=== PATIENT | female | born 1985 | race African-American/Black ===

== ENCOUNTER 2016-04-04 16:42 | Emergency (ER) | payer OTHER ==
[2016-04-04 16:46] VITALS: BMI 25.2
[2016-04-04] MEDS ORDERED: ONDANSETRON 4 MG/2 ML VIAL ONE ×2 (17:04→17:11)
[2016-04-04] MEDS ORDERED: SODIUM CHLORIDE 1,000 ML IV ONE (17:07)
[2016-04-04] MEDS ORDERED: PANTOPRAZOLE SODIUM 40 MG in SODIUM CHLORIDE 100 ML IVPB ONE (17:07)
[2016-04-04] MEDS ORDERED: morphine CARPU-JECT 4 MG/1 ML DISP.SYRIN IVPUSH ONE (17:07)
[2016-04-04] MEDS ORDERED: ONDANSETRON 4 MG/2 ML VIAL IVPB ONE (17:07)
[2016-04-04] MEDS ORDERED: FAMOTIDINE 20 MG/50 ML IVPB 50 ML IVPB ONE ×2 (17:09→17:12)
[2016-04-04] MEDS ORDERED: morphine CARPU-JECT 4 MG/1 ML DISP.SYRIN ONE (17:12)
[2016-04-04 17:13] LABS: URINE APPEARANCE CLOUDY; URINE BILIRUBIN NEGATIVE (NEGATIVE); URINE BLOOD NEGATIVE (NEGATIVE); URINE COLOR DKYELLOW; URINE GLUCOSE (UA) NEGATIVE (NEGATIVE); URINE KETONE 1+ (NEGATIVE); URINE LEUK ESTERASE 3+ (NEGATIVE); URINE NITRITE NEGATIVE (NEGATIVE); URINE PROTEIN 1+ (NEGATIVE); URINE UROBILINOGEN NEGATIVE E.U./dl (0.2-1.0)
[2016-04-04 17:15] LABS: URINE HYALINE CAST 1 /lpf; URINE MUCUS RARE; URINE RBC <1 /hpf (0-3); URINE WBC 1 /hpf (3-5)
--- NOTE | 2016-04-04 17:23 | PDOC ---
History of Present Illness <Domingo Garcia - Last Filed: 04/04/16 22:29> - General History Source: Patient Exam Limitations: No Limitations - History of Present Illness Initial Comments: 04/04/16 17:43 The patient is a 30 year old female, with a significant past medical history of pancreatitis, s/p cholecystectomy, kidney stones s/p lithotripsy, ovarian cysts and fibroids, who presents to the emergency department with constant epigastric pain which radiates around to the left side of her back since yesterday. The patient states that her epigastric pain is exacerbated when she coughs. The patient additionally reports nausea and nonbloody diarrhea but denies any vomiting. The patient reports a recent URI with fevers and body aches over the past 4 days but states that those symptoms have since resolved. The patient reports taking Aspirin and Theraflu for her URI symptoms. Her epigastric pain has persisted after her URI symptoms resolved so the patient saw her PCP yesterday. She reports that her PCP did some bloodwork. The patient states that her symptoms feel similar to her last episode of pancreatitis which was approximately one year ago. Currently in the ED, the patient denies fever, chills, shortness of breath, chest pain, constipation or melena. The patient recently moved to [place] from [place]. Allergies: Penicillins, Hydrocodone bitartrate Past Surgical History: Cholecystectomy, Hiatal Hernia s/p Lap Chato Fundoplication, Lithotripsy, Colonoscopy Social History: Non smoker. Reports social alcohol use. Denies drug use. PCP: Dr. Arsh Sanchez <Maria Isabel Matthew - Last Filed: 04/04/16 22:42> - General Chief Complaint: Pain Stated Complaint: UPPER STOMACH PAIN Time Seen by Provider: 04/04/16 16:56 Past History - Past Medical History Other medical history: pancreatitis - Surgical History Abdominal Surgery: Yes (tumor removed, liptotripsy,colonoscopy) - Psycho/Social/Smoking Cessation Hx Suicidal Ideation: No Smoking History: Never smoked Information on smoking cessation initiated: No Hx Alcohol Use: No Drug/Substance Use Hx: No Substance Use Type: None <Domingo Garcia - Last Filed: 04/04/16 22:29> <Maria Isabel Matthew - Last Filed: 04/04/16 22:42> - Past Medical History Allergies/Adverse Reactions: Allergies Allergy/AdvReac Type Severity Reaction Status Date / Time acetaminophen [From Lortab] Allergy Verified 04/04/16 16:47 hydrocodone bitartrate Allergy Verified 04/04/16 16:47 [From Lortab] Penicillins Allergy Verified 04/04/16 16:47 Home Medications: Ambulatory Orders Esomeprazole Magnesium [Nexium 24Hr] 20 mg PO DAILY #30 tablet. 04/04/16 Review of Systems - Review of Systems Able to Perform ROS?: Yes Constitutional: Yes: Fever (resolved 2d ago) HEENTM: Yes: Nose Congestion. No: Throat Pain Respiratory: Yes: Cough. No: Shortness of Breath Cardiac (ROS): Yes: Lightheadedness. No: Chest Pain ABD/GI: Yes: Diarrhea, Nausea. No: Blood Streaked Bowels, Vomiting Musculoskeletal: Yes: Muscle Pain (resolved, occurred with URI) All Other Systems: Reviewed and Negative <Domingo Garcia - Last Filed: 04/04/16 22:29> *Physical Exam - Vital Signs Last Vital Signs Temp Pulse Resp BP Pulse Ox 98.5 F 116 H 17 116/63 100 04/04/16 16:43 04/04/16 16:43 04/04/16 16:43 04/04/16 16:43 04/04/16 16:43 <Domingo Garcia - Last Filed: 04/04/16 22:29> - Vital Signs Last Vital Signs Temp Pulse Resp BP Pulse Ox 98.5 F 116 H 17 116/63 100 04/04/16 16:43 04/04/16 16:43 04/04/16 16:43 04/04/16 16:43 04/04/16 16:43 - Physical Exam Comments: 04/04/16 17:26 GENERAL: The patient is awake, alert, and fully oriented, in no acute distress. HEAD: Normal with no signs of trauma. EYES: Pupils equal, round and reactive to light, extraocular movements intact, sclera anicteric, conjunctiva clear with no pallor. ENT: Ears normal, nares patent, oropharynx clear without exudates. Moist mucous membranes. NECK: Normal range of motion, supple without lymphadenopathy, JVD, or masses. LUNGS: Coarse bibasilar breath sounds. Breath sounds equal. No wheezes/crackles. HEART: Regular but slightly tachycardic, normal S1 and S2 without murmur or rub. ABDOMEN: Diffuse upper abdominal tenderness with guarding worst in epigastric and LUQ. Soft/nondistended. BS wnl. No rebound. No palpable masses. No hepatosplenomegaly. EXTREMITIES: Normal range of motion, no edema. No clubbing or cyanosis. No cords , erythema, or tenderness. NEUROLOGICAL: Cranial nerves II through XII grossly intact. Normal speech, normal gait. PSYCH: Normal mood, normal affect. SKIN: Warm, dry, normal turgor, no rashes or lesions noted. <Maria Isabel Matthew - Last Filed: 04/04/16 22:42> Heart Score/ECG Review #1 ECG reviewed & interpreted by me at: 17:21 General ECG Interpretation: Sinus Rhythm, Normal Rate (103), Normal Intervals ( Isolated T-wave inversion in V3, no acute ST changes.), No acute ischemic changes <Domingo Garcia - Last Filed: 04/04/16 22:29> ED Treatment Course - LABORATORY CBC & Chemistry Diagram: 04/04/16 17:20 04/04/16 17:20 - ADDITIONAL ORDERS Additional order review: Laboratory Results 04/04/16 17:00 Urine Color Dkyellow Urine Appearance Cloudy Urine pH 5.0 Ur Specific [place] 1.029 Urine Protein 1+ H Urine Glucose (UA) Negative Urine Ketones 1+ H Urine Blood Negative Urine Nitrite Negative Urine Bilirubin Negative Urine Urobilinogen Negative Ur Leukocyte Esterase 3+ H Urine RBC <1 Urine WBC 1 Ur Epithelial Cells Rare Hyaline Casts 1 Urine Mucus Rare Urine HCG, Qual Negative <Domingo Garcia - Last Filed: 04/04/16 22:29> - LABORATORY CBC & Chemistry Diagram: 04/04/16 17:20 04/04/16 17:20 - ADDITIONAL ORDERS Additional order review: Laboratory Results 04/04/16 17:00 Urine Color Dkyellow Urine Appearance Cloudy Urine pH 5.0 Ur Specific [place] 1.029 Urine Protein 1+ H Urine Glucose (UA) Negative Urine Ketones 1+ H Urine Blood Negative Urine Nitrite Negative Urine Bilirubin Negative Urine Urobilinogen Negative Ur Leukocyte Esterase 3+ H Urine RBC <1 Urine WBC 1 Ur Epithelial Cells Rare Hyaline Casts 1 Urine Mucus Rare Urine HCG, Qual Negative <Maria Isabel Matthew - Last Filed: 04/04/16 22:42> Medical Decision Making - Medical Decision Making 04/04/16 17:20 A portion of this note was documented by scribe services under my direction. I have reviewed the details of the note, within reason, and agree with the documentation with the following case summary and management plan written by me. 30y/o F h/o PUD and recurring pancreatitis s/p lap braxton and Chato last year, now with epigastric pain similar to past pancreatitis in the setting of 3-4d URI sxs of nasal congestion/cough/body aches/chills. Nausea and anorexia, but no vomiting. Diarrhea but no black stool or red stool. Was taking aspirin for her body aches, otherwise no excessive etoh use or smoking. slight tachy, afebrile epigastric ttp with guarding 30y/o F with epigastric pain since yesterday, ? PUD flare v. pancreatitis flare , less likely biliary related. r/o pna given the URI and worse pain with cough, no evidence for cardiac process. labs, ua cxr, ekg antacid, pain control, nausea control IVF rehydration reassess 04/04/16 18:36 White count 2.9, no bands. Hemoglobin 9.6, patient has history of anemia with iron transfusions but does not know her baseline. Chemistries are within normal limits, including lipase. Urinalysis is clear. Had low-grade fever, treated with Tylenol. We'll do chest x-ray and CT of the abdomen and pelvis, reassess. 04/04/16 22:29 Markedly improved, her pain has essentially resolved, abdominal exam is benign, she is tolerating by mouth. Labs and CT imaging are normal, presentation is most consistent with post viral gastritis/PUD flare without evidence of active bleeding. Will discharge on H2 miguelito and PPI, give GI referral, and understands return criteria. <Domingo Garcia - Last Filed: 04/04/16 22:29> - Medical Decision Making 04/04/16 19:25 Preliminary reading of Chest X-Ray: No acute infiltrate. Slightly enlarged gastric bubble. Question air fluid levels in abdomen. Awaiting official report. EXAM: ABDOMEN & PELVIS CT WITH CONTRAST Reviewed By: Dr. Bennett Ryder IMPRESSION: There is no free air. Prior cholecystectomy. Prior gastric fundoplication? There is no peripancreatic inflammatory process. There is no evidence of acute pancreatitis. There is no hydronephrosis. There are no renal calculi. There is a moderate amount of stool noted in the colon. There is no evidence of intestinal obstruction. The appendix is normal in size. There is no evidence of appendicitis. Urinary bladder is minimally distended. There are no bladder calculi. There is a small cul-de-sac effusion. There is mild lumbar scoliosis. <Maria Isabel Matthew - Last Filed: 04/04/16 22:42> *DC/Admit/Observation/Transfer <Domingo Garcia - Last Filed: 04/04/16 22:29> - Attestations Scribe Attestion: 04/04/16 17:25 Documentation prepared by Maria Isabel Matthew, acting as medical data entry clerk for Domingo Garcia MD. <Maria Isabel Matthew - Last Filed: 04/04/16 22:42> Diagnosis at time of Disposition: Epigastric abdominal pain Gastritis Qualifiers: Gastritis type: unspecified gastritis Chronicity: acute Gastritis bleeding: without bleeding Qualified Code(s): K29.00 - Acute gastritis without bleeding - Discharge Dispostion Disposition: HOME Condition at time of disposition: Improved - Prescriptions Prescriptions: Esomeprazole Magnesium [Nexium 24Hr] 20 mg PO DAILY #30 tablet.dr - Referrals Referrals: Arsh Sanchez MD [Primary Care Provider] - Eric Davey MD [Staff Physician] - - Patient Instructions Printed Discharge Instructions: DI for Gastritis Additional Instructions: Activity as tolerated. Stay hydrated. Advance diet as tolerated, avoiding dairy , spicy or fatty foods, caffeine and alcohol. Blood tests, a chest x-ray, and a CAT scan of the abdomen and pelvis showed no acute abnormalities. Your presentation is most likely consistent with a gastritis in the setting of the recent viral infection. Take Pepcid 20 mg twice daily for 10 days, this is available [id number]. Also take Nexium once daily as prescribed. You should follow up with Dr. Sanchez and a lieutenant governor (consider calling Dr. Davey) as soon as possible regarding today's emergency department visit. Return to the emergency department for any new or concerning symptoms, particularly persistent or worsening pain, bloody vomit or stool, fevers or chills.
[2016-04-04 17:40] LABS: BASOPHIL 0.3 % (0-2.0); EOSINOPHIL 0.9 % (0-4.5); MCH 23.1 pg (25.7-33.7); MCHC 31.2 g/dl (32.0-36.0); MEAN CELL VOLUME 74.1 fl (80-96); MEAN PLT VOLUME 8.4 fl (7.5-11.1); PLATELET COUNT 220 K/MM3 (134-434); RDW 19.7 % (11.6-15.6); WHITE BLOOD COUNT 2.9 K/mm3 (4.0-10.0)
[2016-04-04 18:01] LABS: MAGNESIUM 2.1 mg/dL (1.8-2.4)
[2016-04-04 18:03] LABS: BILIRUBIN,DIRECT < 0.1 mg/dL (0.0-0.2)
[2016-04-04 18:04] LABS: ALBUMIN 3.8 g/dl (3.4-5.0); ANION GAP 9 (8-16); BILIRUBIN,TOTAL 0.3 mg/dL (0.2-1.0); CALCIUM 9.1 mg/dL (8.5-10.1); CO2 25 mmol/L (21-32); CREATININE 0.9 mg/dL (0.55-1.02); GLUCOSE,RANDOM 76 mg/dL (74-106); SGOT/AST 21 U/L (15-37); SGPT/ALT 16 U/L (12-78); TOT PROT 7.8 g/dl (6.4-8.2)
[2016-04-04 18:05] LABS: ALK PHOS 54 U/L (45-117)
[2016-04-04] MEDS ORDERED: ACETAMINOPHEN 500 MG TABLET (FP) PO ONE (18:30)
[2016-04-04] MEDS ORDERED: ACETAMINOPHEN 325 MG TABLET (FP) ONE (18:41)
[2016-04-04 23:03] VITALS: BP 108/63; PULSE 84; TEMP 98.4
--- NOTE | 2016-04-05 22:31 | EKG ---
Test Reason : Blood Pressure : / mmHG Vent. Rate : 103 BPM Atrial Rate : 103 BPM P-R Int : 146 ms QRS Dur : 074 ms QT Int : 328 ms P-R-T Axes : 066 047 027 degrees QTc Int : 429 ms SINUS TACHYCARDIA NONSPECIFIC T WAVE ABNORMALITY ABNORMAL ECG NO PREVIOUS ECGS AVAILABLE Confirmed by EDIN HAN MD ([id number]) on 04/05/2016 10:30:59 PM Referred By: Confirmed By:EDIN HAN MD
== END 2016-04-04 23:04 | disposition home or self-care (01) ==
LOC: JER 16:42
PROC: 3E0337Z Introduction of Electrolytic and Water Balance Substance into Peripheral Vein, Percutaneous Approach (ICD-10-PCS; principal; 2016-04-04)
PROC: 3E033GC Introduction of Other Therapeutic Substance into Peripheral Vein, Percutaneous Approach (ICD-10-PCS; 2016-04-04)
PROC: 3E033NZ Introduction of Analgesics, Hypnotics, Sedatives into Peripheral Vein, Percutaneous Approach (ICD-10-PCS; 2016-04-04)
PROC: 3E033GC Introduction of Other Therapeutic Substance into Peripheral Vein, Percutaneous Approach (ICD-10-PCS; 2016-04-04)
DX: K29.00 Acute gastritis without bleeding (principal)
CPT/HCPCS: 36415; 71020-TC; 74177-TC; 80053; 81003; 81015; 82248; 83690; 83735; 84703; 85025; 93005; 93010; 99283-25

== ENCOUNTER 2019-02-24 11:43 | Emergency (ER) | payer OTHER ==
[2019-02-24 11:50] VITALS: BMI 25.8
[2019-02-24] MEDS ORDERED: ONDANSETRON 4 MG/2 ML VIAL IVPUSH ONE (12:30)
[2019-02-24] MEDS ORDERED: SODIUM CHLORIDE 0.9% 500 ML INFUS.BAG IV ONE (12:30)
--- NOTE | 2019-02-24 12:35 | PDOC ---
History of Present Illness <Maricarmen Duron - Last Filed: 02/24/19 15:07> - History of Present Illness Initial Comments: 02/24/19 12:33 CHIEF COMPLAINT: lightheadedness, nausea HISTORY OF PRESENT ILLNESS: 33 yo F with hx of pancreatitis, s/p cholecystectomy , kidney stones s/p lithotripsy, hiatial hernia repair (2015), prolactinoma removal (2010), ovarian cysts and fibroids presents to ED with lightheadedness and nausea since yesterday. Patient denies denies fevers, abdominal pain, vomiting, diarrhea, chills. Patient reports mild headache associated with lightheadedness but denies any vertigo. PCP: MD Danilo Preciado. No recent travel or sick contacts. PAST MEDICAL HISTORY: Denies past medical history FAMILY HISTORY: Denies SOCIAL HISTORY:Denies tobacco, alcohol, illicit drug use. SURGICAL HISTORY: Denies ALLERGIES: No known drug allergies REVIEW OF SYSTEMS General/Constitutional: Denies fever or chills. Denies weakness, weight change. HEENT: Denies change in vision. Denies ear pain or discharge. Denies sore throat. Cardiovascular: Denies chest pain or shortness of breath. Respiratory: Denies cough, wheezing, or hemoptysis. Gastrointestinal: Nausea, denies nausea, vomiting, diarrhea or constipation. Denies rectal bleeding. Genitourinary: Denies dysuria, frequency, or change in urination. Musculoskeletal: Denies joint or muscle swelling or pain. Denies neck or back pain. Skin and breasts: Denies rash or easy bruising. Neurologic: Lightheadedness and mild headache. Denies vertigo loss of consciousness, or loss of sensation. Psychiatric: Denies depression or anxiety. PHYSICAL EXAM General Appearance: Well-appearing, appropriately dressed. No apparent distress , no intoxication. HEENT: EOMI, PERRLA, normal ENT inspection, normal voice, TMs normal, pharynx normal. No conjunctival pallor. No photophobia, scleral icterus. Neck: Supple. Trachea midline. No tenderness, rigidity, carotid bruit, stridor , lymphadenopathy, or thyromegaly. Respiratory/Chest: Lungs CTAB. No shortness of breath, chest tenderness, respiratory distress, accessory muscle use. No crackles, rales, rhonchi, stridor , wheezing, dullness Cardiovascular: RRR. S1, S2. No JVD, murmur, bradycardia, tachycardia. Vascular Pulses: Dorsalis-Pedis (R): 2+, Dorsalis-Pedis (L): 2+ Gastrointestinal/Abdominal: Normal bowel sounds. Abdomen soft, non-distended. No tenderness or rebound tenderness. No organomegaly, pulsatile mass, guarding , hernia, hepatomegaly, splenomegaly. Lymphatic: No adenopathy, tenderness. Musculoskeletal/Extremities: Normal inspection. FROM of all extremities, normal capillary refill. Pelvis Stable. No CVA tenderness. No tenderness to extremities, pedal edema, swelling, erythema or deformity. Integumentary: Appropriate color, dry, warm. No cyanosis, erythema, jaundice or rash Neurologic: shoe cutter II-XII intact. Fully oriented, alert. Appropriate mood/affect. Motor strength 5/5. No appreciable EOM palsy, facial droop or sensory deficit. <Juli Ley - Last Filed: 02/24/19 15:18> - General Chief Complaint: Lightheaded Stated Complaint: DIZZNESS, NAUSEOUS Time Seen by Provider: 02/24/19 12:30 Past History <Maricarmen Duron - Last Filed: 02/24/19 15:07> - Past Medical History COPD: No - Surgical History Abdominal Surgery: Yes (tumor removed, liptotripsy,colonoscopy) - Psycho Social/Smoking Cessation Hx Smoking History: Never smoked Hx Alcohol Use: No Drug/Substance Use Hx: No Substance Use Type: None <Juli Ley - Last Filed: 02/24/19 15:18> - Past Medical History Allergies/Adverse Reactions: Allergies Allergy/AdvReac Type Severity Reaction Status Date / Time acetaminophen [From Lortab] Allergy Verified 02/24/19 11:50 hydrocodone bitartrate Allergy Verified 02/24/19 11:50 [From Lortab] Penicillins Allergy Verified 02/24/19 11:50 Home Medications: Ambulatory Orders Esomeprazole Magnesium [Nexium 24Hr] 20 mg PO DAILY #30 tablet. 04/04/16 Promethazine HCl [Phenergan -] 25 mg PO TID PRN #15 tablet 02/24/19 *Physical Exam - Vital Signs Last Vital Signs Temp Pulse Resp BP Pulse Ox 97.7 F 93 H 18 121/82 100 02/24/19 11:47 02/24/19 11:47 02/24/19 11:47 02/24/19 11:47 02/24/19 11:47 <Maricarmen Duron - Last Filed: 02/24/19 15:07> - Vital Signs Last Vital Signs Temp Pulse Resp BP Pulse Ox 97.7 F 93 H 18 121/82 100 02/24/19 11:47 02/24/19 11:47 02/24/19 11:47 02/24/19 11:47 02/24/19 11:47 <Juli Ley - Last Filed: 02/24/19 15:18> ED Treatment Course - LABORATORY CBC & Chemistry Diagram: 02/24/19 12:45 02/24/19 12:45 - ADDITIONAL ORDERS Additional order review: Laboratory Results 02/24/19 02/24/19 02/24/19 13:41 13:41 12:45 WBC RBC Hgb Hct MCV MCH MCHC RDW Plt Count MPV Absolute Neuts (auto) Neutrophils % Lymphocytes % Monocytes % Eosinophils % Basophils % Nucleated RBC % Sodium 138 Potassium 4.0 Chloride 107 Carbon Dioxide 25 Anion Gap 6 L BUN 11.3 Creatinine 0.9 Est GFR (CKD-EPI)AfAm 96.01 Est GFR (CKD-EPI)NonAf 82.84 Random Glucose 82 Calcium 8.6 Total Bilirubin 0.2 AST 16 ALT 16 Alkaline Phosphatase 64 Total Protein 7.6 Albumin 3.6 Lipase 191 Urine Color Yellow Urine Appearance Clear Urine pH 6.0 Ur Specific [place] 1.010 Urine Protein Negative Urine Glucose (UA) Negative Urine Ketones Negative Urine Blood Negative Urine Nitrite Negative Urine Bilirubin Negative Urine Urobilinogen 0.2 Ur Leukocyte Esterase Negative Urine HCG, Qual Negative 02/24/19 12:45 WBC 3.0 L RBC 3.97 Hgb 9.0 L Hct 29.4 L MCV 74.0 L MCH 22.8 L MCHC 30.8 L RDW 18.8 H Plt Count 360 D MPV 8.4 Absolute Neuts (auto) 1.9 Neutrophils % 61.8 D Lymphocytes % 25.5 D Monocytes % 10.3 H Eosinophils % 2.0 D Basophils % 0.4 Nucleated RBC % 0 Sodium Potassium Chloride Carbon Dioxide Anion Gap BUN Creatinine Est GFR (CKD-EPI)AfAm Est GFR (CKD-EPI)NonAf Random Glucose Calcium Total Bilirubin AST ALT Alkaline Phosphatase Total Protein Albumin Lipase Urine Color Urine Appearance Urine pH Ur Specific [place] Urine Protein Urine Glucose (UA) Urine Ketones Urine Blood Urine Nitrite Urine Bilirubin Urine Urobilinogen Ur Leukocyte Esterase Urine HCG, Qual 02/24/19 12:45 RBC 3.97 MCV 74.0 L MCHC 30.8 L RDW 18.8 H MPV 8.4 Neutrophils % 61.8 D Lymphocytes % 25.5 D Monocytes % 10.3 H Eosinophils % 2.0 D Basophils % 0.4 - Medications Given in the ED: ED Medications Discontinued Medications Generic Name Dose Route Start Last Admin Trade Name Freq PRN Reason Stop Dose Admin Meclizine HCl 25 mg 02/24/19 12:37 02/24/19 12:59 Antivert - PO 02/24/19 12:38 25 mg ONCE ONE Administration Ondansetron HCl 4 mg 02/24/19 12:30 02/24/19 12:59 Zofran Injection IVPUSH 02/24/19 12:31 4 mg ONCE ONE Administration Promethazine HCl 12.5 mg 02/24/19 14:32 02/24/19 14:55 Phenergan Injection - IVPUSH 02/24/19 14:33 12.5 mg ONCE ONE Administration Sodium Chloride 1,000 ml 02/24/19 12:30 02/24/19 12:58 Normal Saline - IV 02/24/19 12:31 1,000 ml ONCE ONE Administration <Maricarmen Duron - Last Filed: 02/24/19 15:07> - LABORATORY CBC & Chemistry Diagram: 02/24/19 12:45 02/24/19 12:45 <Juli Ley - Last Filed: 02/24/19 15:18> Medical Decision Making - Medical Decision Making The patient was seen and evaluated in conjunction with midlevel provider under my direct supervision, ancillary studies were reviewed. I agree with the plan as outlined with ZARINA Ley. HPI, workup/dispo as outlined. VS reviewed, wnl. Laboratory results are baseline with usually low WBC count and anemia, electrolytes and creatinine are within normal limits. Negative UA, no given antiemetics. could be chronic anemia contributing to sx. anticipate discharge, pcp followup, return precautions 02/24/19 15:07 <Maricarmen Duron - Last Filed: 02/24/19 15:07> - Medical Decision Making 12/27/19 12:44 33 yo F with hx of pancreatitis, s/p cholecystectomy, kidney stones s/p lithotripsy, hiatial hernia repair (2014), prolactinoma removal (2010), ovarian cysts and fibroids presents to ED with lightheadedness and nausea since yesterday. -labs -IVF, zofran, meclizine 02/24/19 13:40 Laboratory Tests 02/24/19 12:45 WBC 3.0 L Hgb 9.0 L Hct 29.4 L MCV 74.0 L MCHC 30.8 L RDW 18.8 H Monocytes % 10.3 H Patient Hg 9.0. Hx of anemia with transfusions but patient is uncertain of baseline. No significant change from prior CBC of 04/17. Symptoms likely secondary to chronic anemia. Patient states she has a licensed prosthetist/orthotist whom she is supposed to follow up with in the next month. Patient reassessed after administration of medication, states she feels slightly better but continues to feel nauseous. -phenergan Advised patient to take medication as prescribed and follow up with heme as scheduled. Advised patient of signs and symptoms for return to ED. Patient verbalized understanding and agrees to plan. <Juli Ley - Last Filed: 02/24/19 15:18> Discharge <Maricarmen Duron - Last Filed: 02/24/19 15:07> - Discharge Information Problems reviewed: Yes - Admission No <Juli Ley - Last Filed: 02/24/19 15:18> - Discharge Information Clinical Impression/Diagnosis: Anemia Qualifiers: Anemia type: unspecified type Qualified Code(s): D64.9 - Anemia, unspecified Condition: Stable Disposition: HOME - Additional Discharge Information Prescriptions: Promethazine HCl [Phenergan -] 25 mg PO TID PRN #15 tablet PRN Reason: Nausea And/Or Vomiting - Follow up/Referral Referrals: Clinton Griffiths MD [Staff Physician] - - Patient Discharge Instructions Patient Printed Discharge Instructions: Anemia Additional Instructions: Please follow-up with your licensed prosthetist/orthotist within the next week for further evaluation and monitoring of your symptoms, likely related to your anemia. If you develop any shortness of breath, palpitations, worsening lightheadedness, or any new or worsening symptoms, please return to the ER immediately.
[2019-02-24] MEDS ORDERED: MECLIZINE HCL 25 MG TABLET (FP) PO ONE (12:37)
[2019-02-24] MEDS ORDERED: ONDANSETRON 4 MG/2 ML VIAL ONE (12:49)
[2019-02-24] MEDS ORDERED: MECLIZINE HCL 25 MG TABLET (FP) ONE (12:50)
[2019-02-24 13:06] LABS: BASO % 0.4 % (0-2.0); HEMATOCRIT 29.4 % (32.4-45.2); LYMPH % 25.5 % (8-40); MCH 22.8 pg (25.7-33.7); MCHC 30.8 g/dl (32.0-36.0); MEAN PLT VOLUME 8.4 fl (7.5-11.1); MONO % 10.3 % (3.8-10.2); NEUT % 61.8 % (42.8-82.8); PLATELET COUNT 360 K/MM3 (134-434); RBC 3.97 M/mm3 (3.60-5.2); RDW 18.8 % (11.6-15.6)
[2019-02-24 13:42] LABS: ALBUMIN 3.6 g/dl (3.4-5.0); BILIRUBIN,TOTAL 0.2 mg/dL (0.2-1); BLOOD UREA NITROGEN 11.3 mg/dL (7-18); CALCIUM 8.6 mg/dL (8.5-10.1); CREATININE 0.9 mg/dL (0.55-1.3); TOT PROT 7.6 g/dl (6.4-8.2)
[2019-02-24 14:13] LABS: URINE APPEARANCE CLEAR; URINE BILIRUBIN NEGATIVE (NEGATIVE); URINE COLOR YELLOW; URINE GLUCOSE (UA) NEGATIVE (NEGATIVE); URINE KETONE NEGATIVE (NEGATIVE); URINE LEUK ESTERASE NEGATIVE (NEGATIVE); URINE NITRITE NEGATIVE (NEGATIVE); URINE PROTEIN NEGATIVE (NEGATIVE); URINE UROBILINOGEN 0.2 mg/dL (0.2-1.0)
[2019-02-24] MEDS ORDERED: PROMETHAZINE HCL 25 MG/1 ML VIAL IVPUSH ONE (14:32)
[2019-02-24] MEDS ORDERED: PROMETHAZINE HCL 25 MG/1 ML VIAL ONE (14:48)
[2019-02-24 15:39] VITALS: BP 116/81; PULSE 84; TEMP 97.2
== END 2019-02-24 15:40 | disposition home or self-care (01) ==
LOC: JER 11:43
PROC: 3E033GC Introduction of Other Therapeutic Substance into Peripheral Vein, Percutaneous Approach (ICD-10-PCS; principal; 2019-02-24)
PROC: 3E033GC Introduction of Other Therapeutic Substance into Peripheral Vein, Percutaneous Approach (ICD-10-PCS; 2019-02-24)
DX: D64.9 Anemia, unspecified (principal); Z88.0 Allergy status to penicillin; Z88.6 Allergy status to analgesic agent; Z88.8 Allergy status to other drugs, medicaments and biological substances; Z87.19 Personal history of other diseases of the digestive system; Z87.442 Personal history of urinary calculi; Z90.49 Acquired absence of other specified parts of digestive tract
CPT/HCPCS: 36415; 80053; 81003; 83690; 84703; 85025; 99283-25